=== PATIENT | male | born 1965 | race Caucasian/White ===

== ENCOUNTER 2018-01-29 15:13 | Emergency (ER) | payer OTHER ==
[~2018-01-29] VITALS: Ht 180.3 cm; Wt 95.4 kg
[~2018-01-29 15:13] MED LIST: AMBIEN10 MG PO; ATENOLOL25 MG PO; ATORVASTATIN CA20 MG PO; BACTRIM,SEPT1 TABLET PO; CYMBALTA30 MG PO; CYMBALTA60 MG PO; DICLOXACILLIN500 MG PO; FERROUS SULFAT325 MG PO; FLOMAX0.4 MG PO; FUROSEMIDE20 MG PO; LIPITOR20 MG PO; LYRICA100 MG PO; MIRTAZAPINE15 MG PO; MORPHINE SULFAT15 M1 PO; MOTRIN800 MG PO; MS CONTIN,ORAMO15 M1 PO; NAPROXEN500 MG PO; OXYCODONE HCL30 MG PO; PERCOCET 5/31 TABLET PO; PRINIVIL20 MG PO; REMERON15 M2 PO; SOMA350 MG PO; TAMSULOSIN HCL0.4 MG PO; TENORMIN25 MG PO; TRAZODONE HCL50 MG PO; VYVANSE20 MG PO
[2018-01-29 15:54] LABS: HEMATOCRIT 40.5 % (38.0-50.0); HEMOGLOBIN 14.5 G/DL (12.5-16.6); MCH 29.2 PG (29.0-34.0); MCHC 35.8 G/DL (30.0-36.0); MCV 81.5 FL (86-99); PLATELET COUNT 183 K/uL (156-360); RBC DIS.WIDTH-CV 11.9 % (11.8-14.6); RED BLOOD COUNT 4.97 M/uL (4.00-5.50); WHITE BLOOD COUNT 6.7 K/uL (4.1-10.2)
[2018-01-29 16:06] LABS: CHLORIDE 100 mEq/L (99-109); POTASSIUM 3.8 mEq/L (3.7-5.4); SODIUM 136 mEq/L (136-147)
[2018-01-29 16:08] LABS: GLUCOSE 123 mg/dL (70-99)
[2018-01-29 16:12] LABS: CREATININE 1.1 mg/dL (0.6-1.3); GFR ESTIMATE (CALCULATED) > 59 mL/min/ (58.99-99999)
[2018-01-29 16:13] LABS: UREA NITROGEN (BUN) 11 mg/dL (9-23)
[2018-01-29 16:17] LABS: TROP-I INTERPRETATION NEGATIVE; TROPONIN-I < 0.01 ng/mL (0.0-0.30)
[2018-01-29] MEDS ORDERED: PROVENTIL,2.5 MG/3 M IH (19:21)
[2018-01-29] MEDS ORDERED: PREDNISONE10 M1 PO (19:21)
[2018-01-29 20:31] VITALS: BP 124/74
== END 2018-01-29 20:35 | disposition home or self-care (01) ==
LOC: EME 15:13
DX: J44.1 Chronic obstructive pulmonary disease with (acute) exacerbation (principal); F41.9 Anxiety disorder, unspecified; E78.5 Hyperlipidemia, unspecified; F17.200 Nicotine dependence, unspecified, uncomplicated; Z85.828 Personal history of other malignant neoplasm of skin; G89.29 Other chronic pain; M54.5 Low back pain; F32.9 Major depressive disorder, single episode, unspecified; Z79.891 Long term (current) use of opiate analgesic; R07.9 Chest pain, unspecified
CPT/HCPCS: 71046; 71120; 80048; 84484; 85027; 93005; 99281; 99284; J7512